=== PATIENT | male | born 1950 | race Caucasian/White ===

== ENCOUNTER → 2023-01-31 | Outpatient (CLI) | payer MEDICARE | END | disposition home or self-care (01) | LOC: RAH 13:15 | PROVIDERS: ATTEND Student in an Organized Health Care Education/Training Program | DX: I65.23 Occlusion and stenosis of bilateral carotid arteries (principal); I08.1 Rheumatic disorders of both mitral and tricuspid valves; R55 Syncope and collapse | CPT/HCPCS: 93306; 93880 ==

== ENCOUNTER 2023-05-31 08:36 | Day surgery (SDC) | payer MEDICARE ==
[2023-05-27 10:26] LABS: BASOPHILS # (AUTO) 0.04 K/uL (0.00-0.20); BASOPHILS % (AUTO) 0.5 % (0.0-5.0); EOSINOPHILS # (AUTO) 0.13 K/uL (0.00-0.70); EOSINOPHILS % (AUTO) 1.6 % (0.0-8.0); HEMATOCRIT 37.6 % (42-54); IMMATURE GRANULOCYTE ABSOLUTE 0.03 K/uL (0-1); LYMPHOCYTES # (AUTO) 2.1 K/uL (1.0-4.8); LYMPHOCYTES % (AUTO) 25.6 % (21.0-51.0); MEAN CORPUSCULAR HEMOGLOBIN 33.6 pg (27.0-33.0); MEAN CORPUSCULAR HGB CONC 34.6 g/dL (32.0-36.0); MEAN CORPUSCULAR VOLUME 97.2 fL (79-99); MONOCYTES # (AUTO) 0.5 K/uL (0.1-1.0); MONOCYTES % (AUTO) 5.7 % (3.0-13.0); NEUTROPHILS # (AUTO) 5.5 K/uL (1.8-7.7); NEUTROPHILS % (AUTO) 66.2 % (40.0-77.0); PLATELET COUNT (AUTO) 241 K/uL (130-400); RED BLOOD CELL COUNT(AUTO) 3.87 MIL/uL (4.50-6.20); RED CELL DISTRIBUTION WIDTH 12.1 % (11.0-15.5); WHITE BLOOD COUNT (AUTO) 8.3 K/uL (4.8-10.8)
[2023-05-27 10:31] VITALS: BP 140/72; PULSE 73; RESP 18
[2023-05-27 10:38] LABS: INR 0.98 (0.85-1.15); PROTHROMBIN TIME 11.4 SEC (9.6-11.6)
[2023-05-27 10:40] LABS: CREATININE 0.9 mg/dL (0.5-1.5); PARTIAL THROMBOPLASTIN TIME 31.3 SEC (26.3-35.5); POTASSIUM 4.7 mmol/L (3.5-5.1)
[~2023-05-31] VITALS: Ht 177.8 cm; Wt 54.6 kg
[2023-05-31] VITALS (10 sets, daily range): BP systolic 136–153; BP diastolic 52–76; PULSE 57–77; RESP 14–16
[~2023-05-31 08:36] MED LIST: AEC81 PO; ATOR40TA69 PO; LOSA25TA41 PO; METO-408 PO; RIVA20TA PO
[2023-05-31] MEDS ORDERED: 0.9%NACL 1000ML 1,000 ML IV ONE (10:02)
[2023-05-31] MEDS ORDERED: LIDOCAINE HCL 1% MDV 50ML VIAL ONE (12:27)
[2023-05-31] MEDS ORDERED: MIDAZOLAM HCL 1 MG/ML 2ML VIAL ONE (13:02)
[2023-05-31] MEDS ORDERED: MEPERIDINE-PF 25 MG/ML SYG ONE (13:02)
== END 2023-05-31 17:35 | disposition home or self-care (01) ==
LOC: DAH 08:36
PROVIDERS: ATTEND Internal Medicine Cardiovascular Disease
DX: I25.10 Atherosclerotic heart disease of native coronary artery without angina pectoris (principal); I82.413 Acute embolism and thrombosis of femoral vein, bilateral; I10 Essential (primary) hypertension; E78.5 Hyperlipidemia, unspecified; I48.0 Paroxysmal atrial fibrillation; I25.2 Old myocardial infarction; Z83.3 Family history of diabetes mellitus; Z82.3 Family history of stroke; Z88.0 Allergy status to penicillin; Z79.82 Long term (current) use of aspirin; Z79.899 Other long term (current) drug therapy; Z98.890 Other specified postprocedural states
CPT/HCPCS: 80048; 85025; 85610; 85730; 36415; 93005; 93619; 10030; 93970; C1894 ×4; C1730 ×2; J7030; J2250; J2175; J1644; J3490; A4215; A4222; A4221; A4663; A4216; A4606; A4223 ×3; 99156; 99157